=== PATIENT | male | born 1990 | race African-American/Black ===

== ENCOUNTER 2023-01-18 03:11 | Emergency (ER) | payer MEDICAID ==
[~2023-01-18] VITALS: Ht 180.3 cm; Wt 95.3 kg
[2023-01-18 03:31] VITALS: BP 154/109; TEMP 98; O2SAT 100
--- NOTE | 2023-01-18 03:31 | NUR ---
BIBS FOR RECTAL PAIN STARTED 1 WEEK AGO, 2ND TO CHRONIC HEMORRHOID. USING CREAMS W/O RELIEF.
[2023-01-18] MEDS ORDERED: HYDROCODONE/APAP 10/325MG TABLET ONE (03:52)
[2023-01-18] MEDS ORDERED: HYDROCODONE/APAP 10/325MG TABLET PO ONE (04:00)
[2023-01-18] MEDS ORDERED: HYDR-3980 PO (04:05)
[2023-01-18] MEDS ORDERED: HYDR7GEL RC (04:05)
[2023-01-18] MEDS ORDERED: KETOROLAC TROMETHAMINE INJ 30 MG/ML VIAL ONE (04:18)
--- NOTE | 2023-01-18 04:28 | NUR ---
Patient discharged to home in stable condition. Written and verbal after care instructions given. Patient verbalizes understanding of instruction.
[2023-01-18] MEDS ORDERED: KETOROLAC TROMETHAMINE INJ 60 MG/2 ML VIAL IM ONE (04:30)
== END 2023-01-18 04:28 | disposition home or self-care (01) ==
LOC: ER 03:17
DX: K64.9 Unspecified hemorrhoids (principal); F17.200 Nicotine dependence, unspecified, uncomplicated
CPT/HCPCS: 99283; 96372; J1885